=== PATIENT | male | born 1980 | race Caucasian/White ===

== ENCOUNTER 2017-05-25 07:39 | Inpatient (IN) | payer OTHER ==
[~2017-05-25] VITALS: Ht 180.3 cm; Wt 132.4 kg
[2017-05-25] VITALS (7 sets, daily range): BP systolic 102–141; BP diastolic 46–86
--- NOTE | ~2017-05-25 | EKG ---
[address] [place] [address] ELECTROCARDIOGRAM REPORT Name: KATARZYNA,EARL Room #: PRE OSIEL MKatty#: [id number] Admission: Attend Phys: Discharge: Date of : 76 Report #: [id number] THIS REPORT FOR: //name// [facility] ED Test Date: 2017-05-25 Test Time: 08:21:27 Pat Name: LUCILLE COLÓN Department: Room: Gender: M Glost Placer: Adraina ANTON RN : 1980 Requested By: Wild Chowdhury Order Number: [id number] MD: Gage Dc Measurements Intervals [place] Rate: 104 P: 25 [place]: 164 QRS: -16 QRSD: 115 T: 20 QT: 353 QTc: 465 Interpretive Statements Sinus tachycardia Otherwise no significant abnormality No previous ECG available for comparison Electronically Signed On 05-25-2017 8:28:01 [employer] by Gage Dc [email or web address] <ELECTRONICALLY SIGNED> By: Gage Dc MD, [facility] 05/25/17 0828 0821 0821 Gage Dc MD, FACC /EPI
[2017-05-25 08:37] LABS: HEMATOCRIT 46.8 % (42.0-52.0); HEMOGLOBIN 15.5 gm/dL (14.0-18.0); MCH 31.3 pg (26.0-34.0); MCHC 33.2 g/dL (28.0-37.0); MCV 94.2 fL (80.0-100.0); RBC 4.96 mil/uL (4.50-6.00); RDW 13.5 % (10.5-14.5); WBC 11.2 thou/uL (4.0-11.0)
[2017-05-25 08:49] LABS: ANION GAP 12 mmol/L (7-16); BUN 16 mg/dL (7-18); CALCIUM 9.3 mg/dL (8.5-10.1); CHLORIDE 107 mmol/L (98-107); CO2 27 mmol/L (21-32); CREATININE 1.9 mg/dL (0.7-1.3); GLUCOSE 136 mg/dL (74-106); POTASSIUM 4.1 mmol/L (3.5-5.1); SODIUM 146 mmol/L (136-145)
[2017-05-25 08:57] LABS: ALBUMIN 4.4 g/dL (3.4-5.0); SALICYLATE 4.4 mg/dL (2.8-20.0); SGOT 20 U/L (15-37); SGPT 41 U/L (30-65); TOTAL BILIRUBIN 0.2 mg/dL (<0.1-1.0); TOTAL PROTEIN 8.3 g/dL (6.4-8.2); TROPONIN-I < 0.04 ng/mL (<0.06)
[2017-05-25 12:14] LABS: URINE BILIRUBIN NEGATIVE (Negative); URINE BLOOD NEGATIVE (Negative); URINE CLARITY CLEAR; URINE COLOR YELLOW; URINE GLUCOSE-RANDOM* NEGATIVE (Negative); URINE KETONES NEGATIVE (Negative); URINE LEUKOCYTES-REFLEX NEGATIVE (Negative); URINE NITRITE-REFLEX NEGATIVE (Negative); URINE PROTEIN (DIPSTICK) 1+ (Negative); URINE SPECIFIC GRAVITY >= 1.030 (1.005-1.035); URINE UROBILINOGEN 0.2 E.U./dl (0.2-1.0)
[2017-05-25 12:23] LABS: AMP/METHAMP Negative (Negative); BARBITURATES Negative (Negative); BENZODIAZEPINES Negative (Negative); COCAINE Negative (Negative); METHADONE Negative (Negative); OPIATES POSITIVE (Negative); PCP Negative (Negative)
[2017-05-25 12:26] LABS: SQUAMOUS 4-10 Moderate /LPF (0-3); URINE RBC 0-2 Rare /HPF (0-2); URINE WBC-REFLEX 6-15 Few /HPF (0-5)
[2017-05-25 12:27] LABS: BACTERIA-REFLEX None Seen /HPF (None Seen); COARSE GRANULAR CASTS 4-10 Moderate /LPF (None Seen); CRYSTALS None Seen /LPF (None Seen); FINE GRANULAR CASTS 0-3 Few /LPF (None Seen); HYALINE CASTS >10 Many /LPF (None Seen)
[2017-05-25] MEDS ORDERED: ABILIFY10 MG PO (15:05)
[2017-05-25] MEDS ORDERED: ASPIR 8181 M1 PO (15:06)
[2017-05-25] MEDS ORDERED: HYDROCHLOROTH12.5 M1 PO (15:10)
[2017-05-25] MEDS ORDERED: ZYRTEC 10 MG TA10 MG PO (15:10)
[2017-05-25] MEDS ORDERED: PRINIVIL20 MG PO (15:11)
[2017-05-25] MEDS ORDERED: ZOLOFT50 MG PO (15:12)
[2017-05-25] MEDS ORDERED: FLOMAX0.4 MG PO (15:13)
[2017-05-25] MEDS ORDERED: VITAMIN D3400 UNIT PO (15:14)
[2017-05-25] MEDS ORDERED: COLACE 100 MG100 MG PO (15:15)
[2017-05-25] MEDS ORDERED: LAMICTAL100 MG PO (15:16)
[2017-05-25] MEDS ORDERED: METFORMIN HCL500 MG PO (15:16)
[2017-05-25] MEDS ORDERED: TOPAMAX 100 MG100 MG PO (15:18)
[2017-05-25] MEDS ORDERED: TOPAMAX50 MG PO (15:18)
[2017-05-25] MEDS ORDERED: PROPRANOLOL 1010 MG PO (15:18)
[2017-05-25] MEDS ORDERED: BUSPIRONE HCL10 MG PO ×2 (15:19→15:35)
[2017-05-25] MEDS ORDERED: SIMETHICON CHEW80 M1 PO (15:20)
[2017-05-25] MEDS ORDERED: ZOCOR 10 MG TAB10 M1 PO (15:21)
[2017-05-25] MEDS ORDERED: TYLENOL325 MG PO (15:22)
[2017-05-25] MEDS ORDERED: BACLOFEN 10MG T10 MG PO (15:26)
[2017-05-25] MEDS ORDERED: IBUPROFEN 600600 M1 PO (15:27)
[2017-05-25] MEDS ORDERED: MIRALAX17 GM PO ×2 (15:28→15:29)
[2017-05-25] MEDS ORDERED: SENNA LAX8.6 MG PO (15:29)
[2017-05-25] MEDS ORDERED: SILTUSSIN100 MG/5 M PO (15:31)
[2017-05-25] MEDS ORDERED: VENTOLIN HFA 1818 GM INH (15:31)
[2017-05-25] MEDS ORDERED: PANOXYL10 GM TOP (15:33)
[2017-05-25] MEDS ORDERED: HALOPERIDOL 5 MG5 MG PO (15:34)
[2017-05-25] MEDS ORDERED: HALOPERIDOL5 MG/1 M1 IM (15:35)
[2017-05-25] MEDS ORDERED: LORAZEPAM 22 MG/1 ML IM (15:36)
[2017-05-25] MEDS ORDERED: ATIVAN1 MG PO (15:37)
[2017-05-25] MEDS ORDERED: MINERIN CREME454 GM TOP (15:38)
[2017-05-25] MEDS ORDERED: DEPAKOTE ER500 MG PO (15:39)
[2017-05-26 03:31] VITALS: BP 116/82
[2017-05-26 04:33] LABS: HEMATOCRIT 36.3 % (42.0-52.0); MCH 31.8 pg (26.0-34.0); MCHC 34.8 g/dL (28.0-37.0); MCV 91.4 fL (80.0-100.0); PLATELET COUNT 143 thou/uL (150-400); RBC 3.97 mil/uL (4.50-6.00); RDW 13.5 % (10.5-14.5); WBC 7.4 thou/uL (4.0-11.0)
[2017-05-26 04:51] LABS: CALCIUM 8.3 mg/dL (8.5-10.1); POTASSIUM 3.4 mmol/L (3.5-5.1)
[2017-05-26 05:04] LABS: CREATININE 0.8 mg/dL (0.7-1.3)
[2017-05-26 05:10] LABS: HEMOGLOBIN 12.6 gm/dL (14.0-18.0)
[2017-05-26 07:25] VITALS: BP 117/75
[2017-05-26 07:38] LABS: ATYPICAL LYMPHS 2 %
[2017-05-26 07:39] LABS: ANISOCYTOSIS SLIGHT
[2017-05-26 12:25] VITALS: BP 112/51
== END 2017-05-26 14:40 | DRG 917 ==
LOC: ER 07:39 → EROBS 08:55 → 2N 08:55 → ENTRNSPT 05-26 14:28 → EDTRNSPTSTS 05-26 14:30 → 2N 05-26 14:40
PROVIDERS: Emergency Medicine; Family Medicine
DX: T40.1X1A Poisoning by heroin, accidental (unintentional), initial encounter (principal); N17.0 Acute kidney failure with tubular necrosis; G92 Toxic encephalopathy; F31.9 Bipolar disorder, unspecified; F15.90 Other stimulant use, unspecified, uncomplicated; Z79.82 Long term (current) use of aspirin; Z91.041 Radiographic dye allergy status; Z79.899 Other long term (current) drug therapy; Y92.89 Other specified places as the place of occurrence of the external cause
CPT/HCPCS: 10078